=== PATIENT | male | born 1940 | race African-American/Black ===

== ENCOUNTER 2016-05-25 13:52 | Emergency (ER) | payer MEDICARE, OTHER ==
[~2016-05-25 13:52] MED LIST: ASAB PO; ATIVAN IM; BISR PR; COREG25 PO; CRESTOR20 MG PO; DEPASPRINK PO; DSS PO; DUONEB INH; GANIDIN NR100 MG/5 M PO; MIRALAXPKT PO; MOMUD PO; REM15 PO; T PO; TYLENOL 8 HR650 MG PO; [UNRECOGNIZED DRUG - CODE] IM
[2016-05-25 14:39] LABS: BASOPHILS 0.5 %; BASOPHILS ABSOLUTE 0.05 10/3/uL (0.0-0.16); EOSINOPHILS 0.1 %; EOSINOPHILS ABSOLUTE 0.01 10/3/uL (0.0-0.53); IMMATURE GRANULOCYTES 0.2 %; IMMATURE GRANULOCYTES ABSOLUTE 0.02 10/3/uL (0.0-0.11); LYMPHOCYTES 11.2 %; LYMPHOCYTES ABSOLUTE 1.22 10/3/uL (0.67-4.30); MEAN CORPUS HGB CONC 32.8 g/dL (32.0-36.0); MEAN CORPUSCULAR HEMOGLOB 30.9 pg (26.0-34.0); MEAN PLATELET VOLUME 13.1 fL (9.2-13.0); MONOCYTES 6.8 %; MONOCYTES ABSOLUTE 0.74 10/3/uL (0.21-1.20); NEUTROPHILS 81.2 %; NEUTROPHILS ABSOLUTE 8.83 10/3/uL (2.02-8.40); RBC DISTRIBUTION WIDTH 15.3 % (12.0-16.0)
[2016-05-25 14:40] LABS: ER CBC TAT 0 Hrs 07 Mins; HEMATOCRIT 44.8 % (40.0-51.0); HEMOGLOBIN 14.7 g/dL (13.6-17.8); MANUAL DIFF NO %; MEAN CORPUSCULAR VOLUME 94.3 fL (80-100); PLATELET COUNT 113 10/3/uL (150-400); RED CELL COUNT 4.75 10/6/uL (4.7-6.1); WHITE BLOOD CELLS 10.9 10/3/uL (4.5-10.5)
[2016-05-25 14:46] LABS: INTERNATIONAL NORMAL RATI 1.3 UNITS (-); PARTIAL THROMBO TIME 31.8 SEC (22.5-37.2)
[2016-05-25 14:56] LABS: A/G RATIO 0.5 (0.7-1.9); ALKALINE PHOSPHATASE 93 U/L (45-117); CALCIUM, SERUM 8.2 MG/DL (8.5-10.4); CHLORIDE, SERUM 132 MMOL/L (96-112); CO2 (CARBON DIOXIDE) 18 MMOL/L (24-34); GLOBULIN 6.3 G/DL (2.5-4.1); POTASSIUM, SERUM 7.7 MMOL/L (3.5-5.3); SGOT(AST) 12 U/L (5-40); SGPT(ALT) 24 U/L (5-65); SODIUM, SERUM 160 MMOL/L (135-148); TOTAL BILIRUBIN 0.3 MG/DL (0-1.2); TOTAL PROTEIN 9.3 G/DL (6.0-8.5)
[2016-05-25 15:00] LABS: CREATININE 9.31 MG/DL (0.70-1.30); GFR AFRICAN AMERICAN 6 ML/MIN (>=60); GFR NON AFRICAN AMERICAN 5 ML/MIN (>=60); GLUCOSE, SERUM 127 MG/DL (60-99)
[2016-05-25 15:10] LABS: BUN (BLOOD UREA NITROGEN) 219 MG/DL (6-23)
[2016-05-25 15:43] LABS: PROCALCITONIN 1.81 ng/mL (<0.5)
== END 2016-05-25 18:07 | disposition home or self-care (01) ==
LOC: ER 13:52
PROVIDERS: Emergency Medicine
DX: E87.1 Hypo-osmolality and hyponatremia (principal); E87.6 Hypokalemia; N17.9 Acute kidney failure, unspecified; J44.9 Chronic obstructive pulmonary disease, unspecified; N18.9 Chronic kidney disease, unspecified; F03.90 Unspecified dementia, unspecified severity, without behavioral disturbance, psychotic disturbance, mood disturbance, and anxiety; Z91.041 Radiographic dye allergy status; Z88.0 Allergy status to penicillin; Z79.899 Other long term (current) drug therapy
CPT/HCPCS: 71010; 80053; 81001; 83605; 84145; 85025; 85610; 85730; 87040; 93005; 96365; 96375; 99284; A9270-GY; J0610